=== PATIENT | female | born 1940 | race Caucasian/White ===

== ENCOUNTER → 2021-05-17 13:47 | Outpatient (CLI) | payer OTHER, SELFPAY ==
--- NOTE | 2021-05-17 13:54 | CT_ITS ---
STUDY: CT ABDOMEN WITH CONTRAST REASON FOR EXAM: Female, 81 years old. Upper abdominal mass RADIATION DOSAGE (If Supplied By Facility): CTDIvol = ( 13.87 ) mGy, DLP = ( 459.41 ) mGycm TECHNIQUE: Transaxial images were obtained post I.V. administration of IV 100mL Isovue-300, and oral contrast. Sagittal and coronal images were reconstructed. Individualized dose optimization techniques were used for this CT. COMPARISON: None. FINDINGS: Minimal right basilar atelectasis. Mild degree of pericardial thickening. Normal liver. Normal gallbladder and extrahepatic biliary system. Normal spleen. Normal pancreas. Normal bilateral adrenal glands. There is a 3.2 cm x 2.6 cm right parapelvic cyst. Scattered small cysts are seen in the right kidney as well the larger measuring 1.4 cm. Mild degree of the left hydronephrosis. There is a moderate-sized hiatal hernia. Normal small intestine. Normal colon. The appendix is visualized and appears normal. There is diffuse atherosclerotic calcification of the abdominal aorta, without a demonstrated aneurysm. Normal inferior vena cava. Normal retroperitoneum. There is a large anterior ventral hernia containing nondistended feces filled transverse colon. The neck of the hernia measures 4.1 cm. There are diffuse degenerative changes of the visualized lumbar spine. Exaggerated lordosis of the lumbar spine. Grade 1 anterior listhesis of L4 on L5 due to facet joint osteoarthritis. CT/Abdomen WITH IV Contrast IMPRESSION: The palpable mass corresponds to a large ventral hernia containing nondilated transverse colon. Bilateral renal cysts. Electronically Signed: Mike Daniels MD at 15:15 EDT , Service support ,
[2021-05-17 14:11] LABS: CREATININE FINGERSTICK 0.7 mg/dL (0.55-1.02); EGFR FINGERSTICK > 60.0000 mL/min (>60)
--- NOTE | 2021-05-31 11:40 | US_ITS ---
STUDY: ULTRASOUND TRANSVAGINAL CLINICAL: Female, 81 years old. Prolapse TECHNIQUE: Transvaginal COMPARISON: CT dated 05/17/2021. FINDINGS: Normal uterine size measuring 5.7 cm in maximal craniocaudal dimension. There are no myometrial masses. Normal endometrial thickness measuring 3.1 mm. There are no endometrial masses, and there is no fluid in the endometrial cavity. Normal uterine cervix. There is nonvisualization of the ovaries. There is no free fluid in the pelvis. US/Transvaginal Non- IMPRESSION: Nonvisualization of the ovaries secondary to overlying bowel gas. Within normal limits appearing uterus. Electronically Signed: Tracy Mark MD at 16:56 EDT Tel , Service support ,
--- NOTE | 2021-05-31 11:40 | US_ITS ---
STUDY: ULTRASOUND TRANSVAGINAL CLINICAL: Female, 81 years old. Prolapse TECHNIQUE: Transvaginal COMPARISON: CT dated 05/17/2021. FINDINGS: Normal uterine size measuring 5.7 cm in maximal craniocaudal dimension. There are no myometrial masses. Normal endometrial thickness measuring 3.1 mm. There are no endometrial masses, and there is no fluid in the endometrial cavity. Normal uterine cervix. There is nonvisualization of the ovaries. There is no free fluid in the pelvis. US/Pelvic (Non ) IMPRESSION: Nonvisualization of the ovaries secondary to overlying bowel gas. Within normal limits appearing uterus. Electronically Signed: Tracy Mark MD at 16:56 EDT Tel , Service support ,
== END ==
LOC: CT 13:48
PROVIDERS: PCP Internal Medicine; Referring Provider Obstetrics & Gynecology; Visit Provider Obstetrics & Gynecology
DX: R19.00 Intra-abdominal and pelvic swelling, mass and lump, unspecified site (principal)
CPT/HCPCS: 74160; Q9967

== ENCOUNTER → 2021-05-21 16:20 | Outpatient (CLI) | payer OTHER, SELFPAY ==
[2021-05-21 17:12] LABS: ALB/GLOB Ratio 0.9 RATIO (0.9-2.4); AST(SGOT) 29 U/L (15-37); Alanine Aminotransfer ALT/SGPT 34 U/L (13-56); Albumin, Serum 3.6 g/dL (3.2-5.0); Alkaline Phosphatase 59 U/L (45-117); Anion Gap 8 (5-15); BUN 18 mg/dL (7-18); BUN/Creat Ratio 27.8 RATIO (10-20); Calcium,Total 9.1 mg/dL (8.5-10.1); Chloride 107 mmol/L (98-107); Creatinine, Serum 0.65 mg/dL (0.55-1.02); EST Glomerular Filtration Rate 94 mL/min (>60); Est Glom Filt Rate - Afr Amer 113 mL/min (>60); Globulin 4.2 g/dL (2.2-4.2); Glucose 98 mg/dL (74-106); Potassium 3.6 mmol/L (3.5-5.1); Protein, Total 7.8 g/dL (6.4-8.2); Sodium Level 141 mmol/L (136-145)
[2021-05-23 09:52] LABS: Cancer Antigen 125 36.2 U/mL (0.0-38.1)
== END ==
PROVIDERS: PCP Internal Medicine; Referring Provider Obstetrics & Gynecology; Visit Provider Obstetrics & Gynecology
DX: R19.00 Intra-abdominal and pelvic swelling, mass and lump, unspecified site (principal); N81.2 Incomplete uterovaginal prolapse
CPT/HCPCS: 36415; 80053; 86304

== ENCOUNTER → 2021-05-31 11:18 | Outpatient (CLI) | payer OTHER, SELFPAY | PROVIDERS: PCP Internal Medicine; Visit Provider Obstetrics & Gynecology | DX: R19.00 Intra-abdominal and pelvic swelling, mass and lump, unspecified site (principal) | CPT/HCPCS: 76830; 76856 ==

== ENCOUNTER 2021-08-16 05:19 | Day surgery (SDC) | payer MEDICARE, SELFPAY ==
[2021-07-05 12:39] LABS: Absolute Lymphocyte Count 1.34 X10^3/uL (0.83-4.51); Absolute Neutrophil Count 3.7 X10^3/uL (2.0-7.7); Basophil# 0.09 X10^3/uL; Basophil% 1.5 % (0-1); Eosinophil# 0.27 X10^3/uL; Eosinophils% 4.4 % (0-5); Hematocrit 40.3 % (37-47); Hemoglobin 13.5 g/dL (12.0-15.0); Lymphocyte # 1.34 X10^3/ul (0.83-4.51); Lymphocyte % 22.1 % (19-41); Mean Corp Hgb Conc 33.5 g/dL (32-36); Mean Corpuscular Hgb 30.7 pg (27.0-32.0); Mean Corpuscular Volume 91.6 fL (81-99); Mean Platelet Vol. 10.2 fl (6.2-12.0); Monocyte# 0.65 X10^3/uL; Monocyte% 10.7 % (0-10); NRBC Flagged by Analyzer 0 % (0-5); Platelet Count 245 K/mm3 (150-450); RBC Distribution Width CV 12.4 % (11.6-14.6); RBC Distribution Width SD 41.3 fl (35.1-43.9); White Blood Count 6.1 K/mm3 (4.4-11.0)
[2021-07-05 12:48] LABS: Prothrombin Time (Protime)PT. 12.6 SECONDS (11.7-14.9)
[2021-07-05 12:49] LABS: Partial Thromboplast Time 29.5 Seconds (24.1-36.2)
[2021-07-05 13:10] LABS: ALB/GLOB Ratio 0.9 RATIO (0.9-2.4); AST(SGOT) 27 U/L (15-37); Alanine Aminotransfer ALT/SGPT 33 U/L (13-56); Albumin, Serum 3.5 g/dL (3.2-5.0); Alkaline Phosphatase 54 U/L (45-117); Anion Gap 5 (5-15); BUN 16 mg/dL (7-18); Chloride 108 mmol/L (98-107); Creatinine, Serum 0.62 mg/dL (0.55-1.02); EST Glomerular Filtration Rate 99 mL/min (>60); Est Glom Filt Rate - Afr Amer 120 mL/min (>60); Glucose 103 mg/dL (74-106); Potassium 3.8 mmol/L (3.5-5.1); Protein, Total 7.5 g/dL (6.4-8.2); Sodium Level 140 mmol/L (136-145)
[2021-07-05 13:21] LABS: AST(SGOT) 26 U/L (15-37); Alanine Aminotransfer ALT/SGPT 33 U/L (13-56); Albumin, Serum 3.4 g/dL (3.2-5.0); Alkaline Phosphatase 53 U/L (45-117); Bilirubin, Direct 0.11 mg/dL (0.00-0.30); Globulin 4.1 g/dL (2.2-4.2); Magnesium 2.3 mg/dL (1.6-2.6); Protein, Total 7.5 g/dL (6.4-8.2); Thyroid Stim Hormone (TSH) 0.68 uIU/mL (0.358-3.74)
--- NOTE | 2021-08-15 17:05 | PCM.HP.BLA ---
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 Driving Required: No Is patient in pain?: No Allergies No Known Allergies Allergy (Unverified 07/04/21 13:15) Medications aspirin 81 mg tablet,delayed release 81 mg PO DAILY 05/02/21 [History Confirmed 07/04/21] atorvastatin 10 mg tablet 10 mg PO DAILY 05/02/21 [History Confirmed 07/04/21] carvedilol 25 mg tablet 25 mg PO BID 05/02/21 [History Confirmed 07/04/21] cholecalciferol (vitamin D3) 50 mcg (2,000 unit) capsule 50 mcg PO DAILY 05/02/21 [History Confirmed 07/04/21] levothyroxine 125 mcg tablet 125 mcg PO DAILY 05/02/21 [History Confirmed 07/04/21] losartan 100 mg tablet 100 mg PO DAILY 05/02/21 [History Confirmed 07/04/21] multivitamin 1 tab PO DAILY 05/02/21 [History Confirmed 07/04/21] polyethylene glycol 3350 17 gram/dose oral powder 17 g PO DAILY 05/02/21 [History Confirmed 07/04/21] potassium chloride 10 mEq tablet,extended release 10 meq PO DAILY 05/02/21 [History Confirmed 07/04/21] psyllium husk 0.4 gram capsule 0.4 g PO DAILY 05/02/21 [History Confirmed 07/04/21] Saccharomyces boulardii 250 mg capsule 250 mg PO DAILY cap 06/11/21 [History Confirmed 07/04/21] alendronate 70 mg tablet 35 mg PO QWEEK tab 06/11/21 [History Confirmed 07/04/21] ascorbic acid (vitamin C) 500 mg capsule mg PO DAILY cap 06/11/21 [History Confirmed 07/04/21] calcium carbonate 500 mg calcium (1,250 mg) tablet 500 mg PO DAILY 06/11/21 [History Confirmed 07/04/21] cephalexin 250 mg capsule 250 mg PO DAILY cap 06/11/21 [History Confirmed 07/04/21] cranberry 500 mg capsule 600 mg PO DAILY cap 06/11/21 [History Confirmed 07/04/21] docusate sodium 50 mg capsule 50 mg PO BID cap 06/11/21 [History Confirmed 07/04/21] estradiol 1 g VAGINAL .3XW g 06/11/21 [History Confirmed 07/04/21] hydrochlorothiazide 25 mg tablet 12.5 mg PO DAILY tab 06/11/21 [History Confirmed 07/04/21] magnesium oxide 500 mg capsule 250 mg PO DAILY cap 06/11/21 [History Confirmed 07/04/21] Is last menstrual period known: No Post menopausal: Yes Patient : No : No PFSH Medical History Bladder incontinence Cellulitis History of breast cancer Hyperlipidemia Hypertension Hypothyroidism Neurogenic bladder Osteoporosis Spinal stenosis Urinary tract infection Surgical History H/O laparoscopy History of knee replacement History of left mastectomy Spinal stenosis Social History Smoking Status: Never smoker alcohol intake: never substance use type: does not use caffeine: Yes seatbelt use: always do you feel safe at home: Yes additional social history: Miguelangel- both are retired [employer] BSO Details: RONALD TAPIA is a 81 year old who presents for preop appointment planning hysterectomy for prolapse. Female Reproductive History Menopausal Symptoms: No night sweats Pregancy History 2 Elective abortions Hx Para 2 Spontaneous abortions Hx # Term Pregnancies Ectopic pregnancies Hx # Pregnancies Multiple births # of living children ROS Const Constitutional: Reports system reviewed and no additional complaints, except as documented; Denies fatigue, headache(s) or night sweats ENT ENT: Reports system reviewed and no additional complaints, except as documented Cardio Card: Denies chest pain Resp Resp: Denies cough or dyspnea GI GI: Reports fecal incontinence; Denies abdominal pain, bloating, change in stool character, constipation, nausea or vomiting : Reports prolapse symptoms and vaginal dryness; Denies nipple discharge, pelvic pain, sexual dysfunction, urinary frequency, urinary incontinence, urinary urgency, vaginal discharge, vaginal odor or vaginal pruritus Musc Musc: Reports arthralgias, back pain and muscle weakness Skin Skin/Breast: Denies alopecia, change in hair, dry skin, breast mass, breast pain, breast skin changes or nipple discharge Psych Psych: Denies anxiety or depression Endo Endo: Denies excessive sweating, heat intolerance or polydipsia John/Lymph Hematologic/Lymphatic: Denies easy bleeding, Denies easy bruising and Denies lymphadenopathy Exam Const General: cooperative, healthy appearing, comfortable, no acute distress and well developed Orientation: alert [facility] Head: normal to inspection, normocephalic and atraumatic Ears: hearing grossly normal bilaterally and external ears normal Nose: external nose normal and nares normal Face and sinus: normal facial exam Neck Neck: normal visual inspection, full ROM, no lymphadenopathy and trachea midline Thyroid: thyroid normal Resp Effort & Inspection: normal respiratory effort Auscultation: clear to auscultation bilaterally Cardio Rate: regular rate Rhythm: regular rhythm Heart Sounds: S1 normal and S2 normal GI Inspection: abnormal to inspection, non-distended and other (Supraumbilical 10 cm fluctuant mass abdominal wall unclear borders) Palpation: soft, no hepatosplenomegaly, no hepatomegaly, mass (Fluctuant cystic), not rigid and nontender General: bladder normal to palpation External Female Exam: abnormal external appearance (atrophic introitus), normal appearance of the urethra and no lesions Urethra: normal appearance of the urethra Speculum Exam - Vagina: abnormal appearance of the vagina, normal vaginal discharge, vagina atrophic and no lesions Speculum Exam - Cervix: normal appearance of the cervix Bimanual Exam- Vagina & Uterus: normal bimanual exam, uterine size normal, bladder normal to palpation, uterine shape normal, uterine mobility normal and non-tender Bimanual Exam- Adnexa, other: normal adnexae, no masses, rectocele, cystocele (3 grade) and vaginal apex descent Pelvic Support: cystocele (3 grade) severe, rectocele moderate and vaginal apex descent moderate Musc Other: gross motor intact no deficits, full bilateral strength Skin General: no rashes or lesions noted and atrophy Neuro General: patient alert, patient awake, moves all extremities and no focal motor deficits Motor: muscle tone normal throughout Extrem General: normal to inspection and no pedal edema Psych Appearance: grossly normal Mental Status: mental status grossly normal Affect: normal affect Speech and Movement: speech and movement normal Coding Level of Care Code No Charge Diagnoses Incomplete uterovaginal prolapse N81.2 Ventral hernia K43.9 Obstruction and gangrene presence: without obstruction or gangrene Assessment and Plan Assessment and Plan (1) Incomplete uterovaginal prolapse: Status: Acute Comment: urogyn combo surgery planned. TVHBSO. pessary replaced. (2) Ventral hernia: Status: Acute Qualifiers: Obstruction and gangrene presence: without obstruction or gangrene Qualified Code(s): K43.9 - Ventral hernia without obstruction or gangrene Comment: plan repair with AT Plan - Dr. Latesha Miranda MD: After discussing the patient's diagnosis and treatment plan options, patient wishes to proceed with surgical management. I have discussed with the patient the risks, benefits, and alternatives of the procedure which include but are not limited to risks of anesthesia, bleeding, infection, possible damage to bowel, bladder, or surrounding vasculature which could lead to additional surgery to evaluate any complications. Patient agrees to procedure and wishes to proceed. ACOG/uptodate references given for additional information regarding procedure. UPDATE- I have seen the patient and performed any clinically relevant updates to the history and physical exam. Latesha Miranda MD
[2021-08-16] VITALS (11 sets, daily range): BP systolic 95–137; BP diastolic 55–80; PULSE 52–73; RESP 16–18; TEMP 36.1–37.2; O2SAT 93–100; BMI 29.0
[2021-08-16] MEDS: Lactated Ringers 1,000 ML 40 ML IV (06:34)
[2021-08-16 06:35] LABS: Bedside Glucose 105 mg/dL (70-110)
[2021-08-16] MEDS: Acetaminophen 500 MG Tablet 1000 MG PO ×4 (06:37→23:45)
[2021-08-16] MEDS: Celecoxib 200 MG Capsule 400 MG PO (06:38)
[2021-08-16] MEDS: Enoxaparin 40 MG/0.4 ML Syringe SC (06:40)
[2021-08-16] MEDS: Scopolamine 1mg/72hr Patch 1 PATCH TD (06:41)
[2021-08-16] MEDS: dexAMETHasone 10 MG/ML Vial 8 MG IV (06:43)
[2021-08-16] MEDS: Gabapentin 600 MG Tablet PO (06:49)
[2021-08-16] MEDS: Cefazolin 2 GM in 0.9% Normal Saline 100 ML IV (07:26)
--- NOTE | 2021-08-16 07:30 | HYST_PTH ---
PATIENT: RONALD TAPIA LOC: [facility] [place] U#:[id number] AGE/SX: 81/F ROOM: RE08/16/[address]: Dr. Latesha Miranda MD : [id number] BED: DIS: 08/17/2021 SPEC #: [id number] RECD: 08/16/21 13:08 STATUS: GIOVANNA KRISHNA #: [id number] MATT: 08/16/21 07:[address]: Latesha Miranda DEPT: SURGICAL PATHOLOGY RECD BY: Anna Marie Love ENTERED: 08/19/21 09:37 SP TYPE: HYSTERECT OTHR DR: MD Dr. Jenny Wilson DO Tissues: Uterus, NOS Procedures: Surgery Specimen Level V HEADER OPERATION: Vaginal hysterectomy, bilateral salpingo-oophorectomy PRE-OP DIAGNOSIS: Incomplete uterovaginal prolapse TISSUE SUBMITTED: Uterus, cervix, bilateral fallopian tubes, bilateral ovaries MICROSCOPIC DIAGNOSIS Uterus, hysterectomy: Cervix ? acute and chronic inflammation, hyperkeratosis and squamous metaplasia. Endometrium ? focal simple cystic hyperplasia without atypia. Mild chronic endometritis. Myometrium ? vessel wall microcalcifications. Right and left fallopian tubes - no pathologic change. Right and left ovaries ? corpora albicantia. AM:hawa 08/20/2021 MICROSCOPIC DESCRIPTION Slides are reviewed. GROSS DESCRIPTION Received in fixative is one container labeled with the patient's name and designated uterus, cervix, bilateral fallopian tubes and bilateral ovaries. The specimen consists of a hysterectomy specimen consisting of uterus with cervix and detached bilateral fallopian tubes and ovaries. The uterus with cervix weighs 50 gm and measures 7 x 5 x 3.5 cm. The serosal surface is smooth. The ectocervical mucosa is unremarkable. The external os is slit-like in contour. The endocervical canal measures 2 cm in length and the endocervical mucosa is salas, glistening and unremarkable. The triangular endometrial cavity measures 2.5 cm in length and 1 cm in width. The endometrium is salas, glistening without any mass lesion and measures <0.1 cm in thickness. Sections of the uterine wall do not reveal any mass lesion and measures up to 1.5 cm in thickness. The fallopian tubes are not identified as right or left. One of the fallopian tube measures 4.5 cm in length and up to 0.5 cm in diameter. No tubo-ovarian adhesions are identified. The fimbrial end is identified. Sections reveal unremarkable cut surfaces. The adjacent ovary measures 2.5 x 1 x 0.5 cm. Sections reveal unremarkable cut surfaces. The second fallopian tube measures 4 cm in length and 0.4 cm in diameter. It has similar appearance to first one. The second fallopian tube and ovary are detached from one another and the fallopian tube measures 2 x 0.5 x 0.6 cm. Sections reveal unremarkable cut surfaces. Branch Service Leader sections are submitted in eight cassettes as follows: 1??anterior cervix, 2 - posterior cervix, 3 & 4 - anterior uterine wall, 5 & 6 - posterior uterine wall, 7 - one fallopian tube and adjacent ovary, 8 - second fallopian tube and ovary. / TANESHA:hawa 08/19/2021 TC:5 CPT: 25521
[2021-08-16] MEDS: Vasopressin 20 UNITS/ML Vial (07:50)
[2021-08-16] MEDS: Lactated Ringers @ 70 MLS/HR 70 ML IV (08:30)
--- NOTE | 2021-08-16 10:23 | DCINST_ITS ---
Discharge Instructions Diet Discharge Diet: No restrictions Activity Discharge Activity: Return to Normal Activity, May Not Drive (while taking narcotic pain medications.) and May Shower May resume sexual activity in: 6-8 weeks Dressing / Incision Call your doctor if your incision/area has: Continuous Slow Oozing, Sudden Increased Bleeding, Increased Pain/ Swelling, Increased Redness and Foul Smelling Discharge Call your doctor if you observe: Fever of 101 or Higher, Inability to urinate, Inability to have a bowel movement and Using more than 1 pad per hour Follow Up Care Please Follow Up With: Latesha Miranda MD Test Results: Test results from this visit will be discussed in further detail at your follow-up appointment, if applicable. Discharge Plan Admission Attending Provider: Latesha Miranda Primary Care Provider: Jenny Lezama Consulting Providers: Luci Deluca Discharge Orders/Prescriptions Prescriptions: New naproxen 250 MG tablet 250 - 500 mg PO Q8H PRN PRN (Reason: MILD PAIN) Qty: 30 RF: 1 oxycodone-acetaminophen [Percocet] 5-325 mg tablet 1 tab PO Q6H PRN (Reason: pain) 7 Days Qty: 20 RF: 0 Continued losartan 100 mg tablet 100 mg PO DAILY RF: 0 carvedilol 25 mg tablet 25 mg PO BID RF: 0 levothyroxine 125 mcg tablet 125 mcg PO MOTUWETHFR RF: 0 potassium chloride [Klor-Con 10] 10 mEq tablet extended release 10 meq PO DAILY RF: 0 atorvastatin [Lipitor] 10 mg tablet 10 mg PO DAILY RF: 0 polyethylene glycol 3350 [Miralax] 17 gram/dose powder 17 g PO QHS RF: 0 multivitamin Tablet 1 tab PO DAILY RF: 0 cholecalciferol (vitamin D3) 50 mcg (2,000 unit) capsule 50 mcg PO DAILY RF: 0 aspirin 81 mg tablet,delayed release (DR/EC) 81 mg PO DAILY RF: 0 psyllium husk [Daily Fiber] 0.4 gram capsule 0.4 g PO DAILY RF: 0 alendronate [Fosamax] 70 mg tablet 35 mg PO NUNEZ RF: 0 ascorbic acid (vitamin C) 500 mg capsule 500 mg PO BID RF: 0 cephalexin 250 mg capsule 250 mg PO DAILY RF: 0 cranberry 500 mg capsule 600 mg PO DAILY RF: 0 Stool Softener 50 mg capsule 50 mg PO BID RF: 0 estradiol [Estrace] 0.01 % (0.1 mg/gram) cream 1 g vaginal .3XW RF: 0 hydrochlorothiazide 25 mg tablet 25 mg PO DAILY RF: 0 magnesium oxide 500 mg capsule 250 mg PO QHS RF: 0 Saccharomyces boulardii [Daily Probiotic (S. boulardii)] 250 mg capsule 250 mg PO DAILY RF: 0 calcium carbonate [Calcium 500] 500 mg calcium (1,250 mg) tablet 500 mg PO DAILY RF: 0 zinc 50 mg Tablet 50 mg PO DAILY RF: 0 Other Ambulatory Orders: Type & Screen - PAT ONLY (Routine) Timeframe: [id number] Facility: [facility] - Location: Laboratory Ordered By: Dr. Latesha Miranda Referrals / Follow Up: Jenny Lezama DO [Primary Care Provider] - Disposition Disposition (needs filled in before D/C Order can be placed): Home, Self Care
--- NOTE | 2021-08-16 10:23 | PCM.OPRPT ---
Problems Associated Problem List Diagnoses (1) Incomplete uterovaginal prolapse: Report of Operation Pre-Operative Diagnosis: see PL Post-Operative Diagnosis: same Surgery/Procedure Performed:: TVH BSO Description of Surgical Findings:: nl uterus tubes ovaries Type of Anesthesia: General Specimen's removed: uterus, tubes, ovaries Drains: waggoner Fluids Replaced: crystalloid Description of Procedure: Patient was taken to the operating room and was placed under general anesthesia was prepped and draped in normal sterile fashion in the dorsal lithotomy position. Preoperative antibiotics and SCDs and Waggoner catheter was placed inside the bladder. Weighted speculum was placed in the vagina and the anterior and posterior lip of the cervix was grasped with 2 Patricia clamps and circumferentially injected with dilute vasopressin. A circumferential incision was made with a scalpel and the posterior cul-de-sac was entered into sharply and a longneck speculum was placed. The anterior cul-de-sac was also dissected down and entered into sharply and the uterosacral ligaments were clamped cut and suture ligated bilaterally followed by the cardinal ligaments which were Clamped cut and suture ligated bilaterally with 0 Monocryl. The uterus serially descended and progressive bites were taken bilaterally up to the level of the utero-ovarian ligament bilaterally which was clamped transected and double ligated with 0 Monocryl suture and 0 Vicryl free tie. Bilateral fallopian tubes and ovaries were well visualized and noted be within normal limits and the IP ligament was transected across the base with a ema clamp, then ovaries and tubes removed and the pedicle double ligated with O monocryl. Excellent hemostasis was noted. The vagina was closed with [id number] 0 Vicryl pop offs including the posterior and anterior peritoneum in the reapproximation. Excellent hemostasis was noted. Then Dr. Deluca began her portion of the procedure. Grafts/Implants Used: none Complications none Admit VTE Documentation VTE Present on Admission: No VTE Mechan Device Prophylaxis: SCD's VTE Pharm Prophylaxis ordered?: Yes Multi Select Codes Urinary/Genital Urinary/Genital CPT Codes: 57694 TVH+BS/O <250gr uterus
[2021-08-16] MEDS: Estrogens,Conj. 1 Tube 1 DOSE (10:45)
--- NOTE | 2021-08-16 11:02 | PCM.OPRPT ---
Problems Associated Problem List Diagnoses (1) Incomplete uterovaginal prolapse: Report of Operation Date of Procedure: 08/16/21 Pre-Operative Diagnosis: Incomplete uterovaginal prolapse Post-Operative Diagnosis: Same Surgery/Procedure Performed:: Anterior repair with dermis, posterior repair with dermis, bilateral sacrospinous ligament fixation, cystourethroscopy with bilateral ureteral catheterization Description of Surgical Findings:: The patient is a 81-year-old female who presents for definitive surgical intervention for her longstanding prolapse. Informed consent was obtained and preoperative testing was completed. The patient was taken to the operating room and placed on the operating room table. Anesthesia monitored the head, neck, airway, IV access and vital signs throughout the case. Once anesthesia was appropriate ministered the patient was placed into dorsal lithotomy in Trendelenburg position and was prepped and draped in usual sterile fashion. A 16 Jamaican Sullivan catheter was inserted to straight drain and the bladder was emptied. Dr. Miranda proceeded with her portion of the procedure and once the cuff line was closed, the case was turned over to fl. The anterior vaginal wall was isolated and injected submucosally with vasopressin for hemostatic control and diet hydrostatic dissection. At this time a midline vertical incision approximately 2 cm in length was made and dissection was performed and blunt and sharp fashion on both sides into the sacrospinous ligaments were identified and freed from surrounding tissues. Due to the level of prolapse, there is significant amount of redundant anterior vaginal wall. Once the sacrospinous ligaments were isolated, the Capio device was used to pass an Ethibond suture through each side. The suture was brought out through a trimmed piece of dermis and then through the vaginal mucosa in full-thickness fashion at the apex bilaterally. A midline Vicryl suture was used to secure the dermis at the apex as well. It was secured with Vicryl interrupted sutures all the way around. Once it was securely in position, the vaginal mucosa was closed in running interlocking fashion with with 2-0 Vicryl. The Ethibond sutures were then tied into position and the prolapse was reduced. The Sullivan catheter was removed and a cystourethroscopy was performed revealing no evidence of injury to any of the bladder mucosa or the urethra. Bilateral ureteral orifices were located in the correct anatomic position and were each intubated with a 5 Jamaican whistle-tip catheter without evidence of obstruction or injury. Attention was then turned toward the posterior defect. The posterior wall was isolated with Allis clamps and injected submucosally with vasopressin. A midline incision was made and sharp and blunt dissection was performed bilaterally to the sidewall. Towards the apex, the vaginal mucosa became very very thin and I had difficulty it from the bowel. At this time I used a piece of dermis and sewed the rectovaginal fascia from each sidewall to the dermis in the midline. The area of the perineal body was brought together in the midline for increased support. The vaginal mucosa was then closed in full-thickness fashion over the repair. A cystourethroscopy once again confirmed no evidence of injury. The Sullivan catheter was replaced and the balloon inflated with 10 cc of sterile water. The vagina was packed with vaginal packing and estrogen cream. The patient was then awakened and taken to the recovery room in good condition. There were no complications during this procedure. Surgeon: Luci Deluca Type of Anesthesia: General Estimated Blood Loss (mL): 100 total Grafts/Implants Used: Dermis Complications None Admit VTE Documentation VTE Present on Admission: No VTE Pharm Prophylaxis ordered?: Yes
--- NOTE | 2021-08-16 11:10 | DCINST_ITS ---
Discharge Instructions Diet Discharge Diet: No restrictions Activity Discharge Activity: May Shower and Use Walker May resume sexual activity in: 8 weeks Lifting Restrictions: No lifting over 5 pounds, no exercise, no strenuous a ctivity Additional Activity Instructions:: No swimming, tub bathing or hot tubs, no sexual activity Dressing / Incision Call your doctor if your incision/area has: Continuous Slow Oozing, Sudden Increased Bleeding, Increased Pain/ Swelling, Increased Redness and Foul Smelling Discharge Call your doctor if you observe: Fever of 101 or Higher, Inability to urinate, Inability to have a bowel movement and Using more than 1 pad per hour Additional Dressing/Incision Instructions:: resume normal cathing schedule and estrogen cream intravaginally regular schedule Follow Up Care Please Follow Up With: Latesha Miranda MD When: Dr. Deluca in 2 weeks Test Results: Test results from this visit will be discussed in further detail at your follow-up appointment, if applicable. Discharge Plan Admission Attending Provider: Latesha Miranda Primary Care Provider: Jenny Lezama Consulting Providers: Luci Deluca Discharge Orders/Prescriptions Prescriptions: New naproxen 250 MG tablet 250 - 500 mg PO Q8H PRN PRN (Reason: MILD PAIN) Qty: 30 RF: 1 oxycodone-acetaminophen [Percocet] 5-325 mg tablet 1 tab PO Q6H PRN (Reason: pain) 7 Days Qty: 20 RF: 0 Continued losartan 100 mg tablet 100 mg PO DAILY RF: 0 carvedilol 25 mg tablet 25 mg PO BID RF: 0 levothyroxine 125 mcg tablet 125 mcg PO MOTUWETH RF: 0 potassium chloride [Klor-Con 10] 10 mEq tablet extended release 10 meq PO DAILY RF: 0 atorvastatin [Lipitor] 10 mg tablet 10 mg PO DAILY RF: 0 polyethylene glycol 3350 [Miralax] 17 gram/dose powder 17 g PO QHS RF: 0 multivitamin Tablet 1 tab PO DAILY RF: 0 cholecalciferol (vitamin D3) 50 mcg (2,000 unit) capsule 50 mcg PO DAILY RF: 0 aspirin 81 mg tablet,delayed release (DR/EC) 81 mg PO DAILY RF: 0 psyllium husk [Daily Fiber] 0.4 gram capsule 0.4 g PO DAILY RF: 0 alendronate [Fosamax] 70 mg tablet 35 mg PO NUNEZ RF: 0 ascorbic acid (vitamin C) 500 mg capsule 500 mg PO BID RF: 0 cephalexin 250 mg capsule 250 mg PO DAILY RF: 0 cranberry 500 mg capsule 600 mg PO DAILY RF: 0 Stool Softener 50 mg capsule 50 mg PO BID RF: 0 estradiol [Estrace] 0.01 % (0.1 mg/gram) cream 1 g vaginal .3XW RF: 0 hydrochlorothiazide 25 mg tablet 25 mg PO DAILY RF: 0 magnesium oxide 500 mg capsule 250 mg PO QHS RF: 0 Saccharomyces boulardii [Daily Probiotic (S. boulardii)] 250 mg capsule 250 mg PO DAILY RF: 0 calcium carbonate [Calcium 500] 500 mg calcium (1,250 mg) tablet 500 mg PO DAILY RF: 0 zinc 50 mg Tablet 50 mg PO DAILY RF: 0 Other Ambulatory Orders: Type & Screen - PAT ONLY (Routine) Timeframe: [id number] Facility: [facility] - Location: Laboratory Ordered By: Dr. Latesha Miranda Referrals / Follow Up: Jenny Lezama DO [Primary Care Provider] - Disposition Disposition (needs filled in before D/C Order can be placed): Home, Self Care
[2021-08-16] MEDS: Ketorolac 15 MG/ML Vial IV ×3 (12:45→23:44)
[2021-08-16] MEDS: oxyCODONE 5 MG Tablet PO (13:37)
[2021-08-16] MEDS: Potassium Chloride Oral Tablet 10 MEQ PO (17:25)
[2021-08-16] MEDS: Docusate Sodium 100 MG Capsule PO ×2 (17:26→21:48)
[2021-08-16] MEDS: Cephalexin 250 MG Capsule PO (17:27)
[2021-08-16] MEDS: 0.9% Saline Lock 10 ML Syringe IV (17:34)
[2021-08-16] MEDS: Lactated Ringers 1,000 ML 75 ML IV (19:54)
--- NOTE | 2021-08-16 21:20 | PCS.PANDOC ---
PANDEMIC DOCUMENTATION INITIATED: Date: 08/16/2021 Time: 1900
[2021-08-16] MEDS: Polyethylene Glycol 3350 17 GM PACKET PO (21:48)
[2021-08-17] VITALS: BP 102/65; PULSE 68; RESP 16; TEMP 36.5; O2SAT 94
[2021-08-17 04:00] VITALS: BP 111/58; PULSE 65; RESP 16; TEMP 36.6; O2SAT 96
[2021-08-17] MEDS: Acetaminophen 500 MG Tablet 1000 MG PO (05:49)
[2021-08-17] MEDS: 0.9% Saline Lock 10 ML Syringe IV (05:49)
[2021-08-17] MEDS: Ketorolac 15 MG/ML Vial IV (05:49)
[2021-08-17 05:58] LABS: Hematocrit 29.5 % (37-47); Hemoglobin 9.6 g/dL (12.0-15.0); Mean Corp Hgb Conc 32.5 g/dL (32-36); Mean Corpuscular Hgb 30.6 pg (27.0-32.0); Mean Corpuscular Volume 93.9 fL (81-99); Mean Platelet Vol. 10.7 fl (6.2-12.0); Platelet Count 218 K/mm3 (150-450); RBC Distribution Width CV 12.6 % (11.6-14.6); Red Blood Count 3.14 M/mm3 (4.2-5.4); White Blood Count 15.6 K/mm3 (4.4-11.0)
[2021-08-17 08:11] VITALS: BP 109/66; PULSE 69; RESP 18; TEMP 36.8; O2SAT 98
[2021-08-17] MEDS: Enoxaparin 40 MG/0.4 ML Syringe SC (08:16)
[2021-08-17] MEDS: Cephalexin 250 MG Capsule PO (08:16)
[2021-08-17] MEDS: Carvedilol 25 MG Tablet PO (08:16)
[2021-08-17] MEDS: Losartan Potassium 100 MG Tablet PO (08:16)
[2021-08-17] MEDS: hydroCHLOROthiazide 25 MG Tablet PO (08:17)
[2021-08-17] MEDS: Docusate Sodium 100 MG Capsule PO (08:17)
[2021-08-17] MEDS: Cholecalciferol (VIT D3) 25 MCG TABLET (1,000 UNITS) 50 MCG PO (08:17)
[2021-08-17] MEDS: Potassium Chloride Oral Tablet 10 MEQ PO (08:17)
[2021-08-17] MEDS: Lactated Ringers 1,000 ML 75 ML IV (08:18)
[2021-08-17 11:25] VITALS: BP 107/50; PULSE 70; RESP 18; TEMP 37.2; O2SAT 95
== END 2021-08-17 12:21 | disposition home or self-care (01) ==
LOC: SDC 05:24 → AC 05:24 → MS3 14:39
PROVIDERS: Anesthesiology; Urology; PCP Internal Medicine; Referring Provider Obstetrics & Gynecology; Visit Provider Obstetrics & Gynecology
PROC: (CPT 58260; principal; 2021-08-16 07:10)
PROC: (CPT 57260; 2021-08-16 07:10)
DX: N81.2 Incomplete uterovaginal prolapse (principal); N31.9 Neuromuscular dysfunction of bladder, unspecified; N95.2 Postmenopausal atrophic vaginitis; N39.41 Urge incontinence; N88.0 Leukoplakia of cervix uteri; N87.9 Dysplasia of cervix uteri, unspecified; N85.01 Benign endometrial hyperplasia; N71.1 Chronic inflammatory disease of uterus; N83.291 Other ovarian cyst, right side; N83.292 Other ovarian cyst, left side; I10 Essential (primary) hypertension; E78.5 Hyperlipidemia, unspecified; E03.9 Hypothyroidism, unspecified; K59.2 Neurogenic bowel, not elsewhere classified; K43.9 Ventral hernia without obstruction or gangrene; M19.90 Unspecified osteoarthritis, unspecified site; M81.0 Age-related osteoporosis without current pathological fracture; Z79.82 Long term (current) use of aspirin; Z79.899 Other long term (current) drug therapy
CPT/HCPCS: 58262; 57260; 36415; 80053; 80076; 82962; 83735; 84443; 85025; 85027; 85610; 85730; 86850; 86900; 86901; 88307; 93005; 99251; J7120; A4216; C1758; G0463; J2405

== ENCOUNTER 2021-11-12 13:10 | Observation (INO) | payer MEDICARE, SELFPAY ==
[2021-11-05 16:22] LABS: Hematocrit 39.1 % (37-47); Hemoglobin 12.6 g/dL (12.0-15.0); Mean Corp Hgb Conc 32.2 g/dL (32-36); Mean Corpuscular Hgb 29.3 pg (27.0-32.0); Mean Corpuscular Volume 90.9 fL (81-99); Mean Platelet Vol. 10.4 fl (6.2-12.0); Platelet Count 238 K/mm3 (150-450); RBC Distribution Width CV 12.9 % (11.6-14.6); RBC Distribution Width SD 42.5 fl (35.1-43.9); White Blood Count 6.4 K/mm3 (4.4-11.0)
[2021-11-05 16:47] LABS: Anion Gap 4 (5-15); BUN 23 mg/dL (7-18); BUN/Creat Ratio 36.2 RATIO (10-20); Calcium,Total 9.2 mg/dL (8.5-10.1); Chloride 106 mmol/L (98-107); Creatinine, Serum 0.64 mg/dL (0.55-1.02); EST Glomerular Filtration Rate 96 mL/min (>60); Est Glom Filt Rate - Afr Amer 116 mL/min (>60); Glucose 100 mg/dL (74-106); Potassium 3.8 mmol/L (3.5-5.1); Sodium Level 138 mmol/L (136-145); Thyroid Stim Hormone (TSH) 1.25 uIU/mL (0.358-3.74)
[2021-11-12] VITALS (11 sets, daily range): BP systolic 96–149; BP diastolic 66–86; PULSE 55–75; RESP 14–18; TEMP 35.7–36.9; O2SAT 95–99; BMI 28.5
[2021-11-12] MEDS: Lactated Ringers 1,000 ML 15 ML IV ×2 (11:10→13:15)
--- NOTE | 2021-11-12 11:30 | PCM.HP.BLA ---
History and Physical Date of Admission: 11/12/21 Intake Vital Signs 10/08/21 13:38 Height 5 ft 1 in Weight: 149 lb BMI 28.1 BP 163/55 H Blood Pressure Location Rt brachial Position Sitting Respiration 17 Pulse 75 Pulse Source Monitor Temp 97.4 F L Temp Source Temporal Pulse Oximetry (%) 97 Oxygen Delivery Method room air Intake Visit Reasons: DISCUSS HERNIA SURGERY Chief Complaint: Discuss Hernia Surgery Project Management It Specialist Required: No Is patient in pain?: No Allergies No Known Allergies Allergy (Verified 10/08/21 13:39) Medications aspirin 81 mg tablet,delayed release 81 mg PO DAILY 05/02/21 [History Confirmed 10/08/21] atorvastatin 10 mg tablet 10 mg PO DAILY 05/02/21 [History Confirmed 10/08/21] carvedilol 25 mg tablet 25 mg PO BID 05/02/21 [History Confirmed 10/08/21] cholecalciferol (vitamin D3) 50 mcg (2,000 unit) capsule 50 mcg PO DAILY 05/02/21 [History Confirmed 10/08/21] levothyroxine 125 mcg tablet 125 mcg PO MOTUWETHFR 05/02/21 [History Confirmed 10/08/21] losartan 100 mg tablet 100 mg PO DAILY 05/02/21 [History Confirmed 10/08/21] multivitamin 1 tab PO DAILY 05/02/21 [History Confirmed 10/08/21] polyethylene glycol 3350 17 gram/dose oral powder 17 g PO QHS 05/02/21 [History Confirmed 10/08/21] potassium chloride 10 mEq tablet,extended release 10 meq PO DAILY 05/02/21 [History Confirmed 10/08/21] psyllium husk 0.4 gram capsule 0.4 g PO DAILY 05/02/21 [History Confirmed 10/08/21] Saccharomyces boulardii 250 mg capsule 250 mg PO DAILY cap 06/11/21 [History Confirmed 10/08/21] alendronate 70 mg tablet 35 mg PO NUNEZ tab 06/11/21 [History Confirmed 10/08/21] ascorbic acid (vitamin C) 500 mg capsule 500 mg PO BID cap 06/11/21 [History Confirmed 10/08/21] calcium carbonate 500 mg calcium (1,250 mg) tablet 500 mg PO DAILY 06/11/21 [History Confirmed 10/08/21] cephalexin 250 mg capsule 250 mg PO DAILY cap 06/11/21 [History Confirmed 10/08/21] cranberry 500 mg capsule 600 mg PO DAILY cap 06/11/21 [History Confirmed 10/08/21] docusate sodium 50 mg capsule 50 mg PO BID cap 06/11/21 [History Confirmed 10/08/21] estradiol 1 g VAGINAL .3XW g 06/11/21 [History Confirmed 10/08/21] magnesium oxide 500 mg capsule 250 mg PO QHS cap 06/11/21 [History Confirmed 10/08/21] zinc 50 mg PO DAILY 08/09/21 [History Confirmed 10/08/21] hydrochlorothiazide 25 mg tablet 12.5 mg PO DAILY tab 10/08/21 [History Confirmed 10/08/21] PFSH Medical History Ambulates with cane Arthritis Bladder incontinence Cellulitis Easy bruising Heartburn History of breast cancer History of hiatal hernia History of stress test Hyperlipidemia Hypertension Hypothyroidism Incomplete uterovaginal prolapse Leg cramps Neurogenic bladder Neurogenic bowel Osteoporosis Self-catheterizes urinary bladder Urinary tract infection Wears contact lenses Wears dentures Surgical History H/O laparoscopy History of knee replacement History of left mastectomy History of tonsillectomy History of total vaginal hysterectomy (TVH) Spinal stenosis Social History Smoking Status: Never smoker alcohol intake: never substance use type: does not use caffeine: Yes seatbelt use: always do you feel safe at home: Yes additional social history: Miguelangel- both are retired HPI HPI HPI: RONALD TAPIA, is a 81 F who presents to the office today for follow-up for ventral hernia. Patient had her vaginal hysterectomy and has recovered from this and now she would like her ventral hernia repaired. There have been no changes since last time I saw her. ROS General General: Yes breast cancer; No weight change, appetite, fatigue, colon cancer or weakness HEENT HEENT: No difficulty swallowing, eye injury, eye surgery, swollen glands or hoarseness Endo Endocrine: Yes thyroid disease; No diabetes mellitus, thyroid cancer, Hair loss, heat intolerance or cold intolerance Skin Skin: No rash or changing moles Breast Additional Details: Prior L mastectomy Musc Musculoskeletal: Yes back problems and arthritis; No rheumatoid arthritis, gout or joint pain Cardio Cardiovascular: No murmur, pacemaker, heart disease, atrial fibrillation, high blood pressure, heart attack, heart stent, palpitations, shortness of breat with exertion or chest pain Psych Psychiatric: No depression, anxiety or hearing voices Resp Respiratory: No shortness of breath, No sleep apnea, No cough, No COPD, No asthma, No emphysema and No wheezing Gastro Gastrointestinal: No abdominal pain, No nausea or vomiting, Yes diarrhea, Yes constipation, No blood in stool, No acid reflux, No hemorrhoids, No ulcers, No gallbladder problem and No black,tarry stools Additional Details: neurogenic bowel/bladder John Hematologic: No blood thinners, No blood disorders, No bleeding, No anemia and No blood clots Neuro Neurologic: No system reviewed and no additional complaints, except as documented, No as per HPI, No abnormal gait, No abnormal hearing, No abnormal movements, No abnormal speech, No behavioral changes, No burning sensations, No confusion, No convulsions, No disequilibrium, No dizziness, No localized weakness, No frequent falls, No headache(s), No lack of coordination, No loss of vision, No memory loss, Yes numbness, No other visual disturbances, No radicular pain, No restless legs, No sensory deficit, No syncope, Yes tingling, No tremor(s), No weakness and No other Exam Const General: cooperative Orientation: alert and oriented x3 HENMT Head: normal to inspection Neck Neck: normal visual inspection and full ROM Chest Chest palpation & inspection: normal inspection of the chest Resp Effort & Inspection: normal respiratory effort Auscultation: clear to auscultation bilaterally Cardio Rate: regular rate Rhythm: regular rhythm GI Inspection: non-distended Palpation: soft, hernia ventral and nontender Skin General: no rashes or lesions noted Neuro General: patient alert and patient oriented x3 Extrem General: full ROM Psych Appearance: grossly normal Mental Status: mental status grossly normal Assessment and Plan Assessment and Plan (1) Ventral hernia: Status: Acute Qualifiers: Obstruction and gangrene presence: without obstruction or gangrene Qualified Code(s): K43.9 - Ventral hernia without obstruction or gangrene Plan - Dr. Kyree Leggett MD: The patient has a large ventral hernia which is incarcerated containing colon. The patient had a vaginal hysterectomy and now is ready for ventral hernia repair with mesh. I discussed the procedure once more with her and I discussed a hybrid laparoscopic/open approach. I discussed mesh placement intra-abdominal. I did discuss drain placement as well as risks of the procedure including wound to bleeding, infection, recurrence of hernia, seroma formation, injury to underlying bowel. Patient understands the risks and is willing to proceed. Kyree Leggett MD Pager: [facility] [address] [place] [address], [address] [place] [address] Office: I have re-examined the patient. There are no clinical changes since date of exam.
[2021-11-12] MEDS: Cefazolin 2 GM in 0.9% Normal Saline 100 ML IV (11:52)
--- NOTE | 2021-11-12 12:05 | HERN_PTH ---
PATIENT: RONALD TAPIA LOC: [facility] U#:[id number] AGE/SX: 81/F ROOM: LA321 RE11/12/[address]: Dr. Kyree Leggett MD : 1940 BED: 1 DIS: 11/13/2021 SPEC #: [id number] RECD: 11/12/21 14:16 STATUS: GIOVANNA KRISHNA #: [id number] MATT: 11/12/21 12:[address]: Kyree Leggett DEPT: SURGICAL PATHOLOGY RECD BY: Fermin Salamanca ENTERED: 11/13/21 09:53 SP TYPE: Hernia OTHR DR: Dr. Jenny Lezama, DO Tissues: HERNIA Procedures: Surgery Specimen Level II HEADER OPERATION: Hybrid, hernia, ventral repair with mesh PRE-OP DIAGNOSIS: Ventral hernia TISSUE SUBMITTED: Hernia sac MICROSCOPIC DIAGNOSIS Ventral hernia sac, herniorrhaphy: Hernia sac with fibrosis, mild chronic inflammation and recent hemorrhage. AM:hawa 11/14/2021 MICROSCOPIC DESCRIPTION Slides are reviewed. GROSS DESCRIPTION Received in fixative is one container labeled with the patient's name and designated hernia sac. The specimen consists of multiple pieces of congested soft tissue that in aggregate measure 10 x 9 x 3 cm. No mass lesion is identified. ? A possible lymph node is noted measuring 2 x 1 x 0.5 cm. Retail Stock Clerk sections are submitted in two cassettes as follows: 1 ? soft tissue, 2 ? nodule, a possible lymph node, entirely submitted. / TANESHA:hawa 11/13/2021 TC:3 CPT: 09505
[2021-11-12] MEDS: BUPIVACAINE LIPOSOME/PF 20 ML VIAL OPERA.SITE (12:35)
[2021-11-12] MEDS: 0.9% Normal Saline (Pres. free 10 ML Vial (12:37)
--- NOTE | 2021-11-12 13:06 | PCM.OPRPT ---
Problems Associated Problem List Diagnoses (1) Ventral hernia: Report of Operation Date of Procedure: 11/12/21 Pre-Operative Diagnosis: Incarcerated ventral hernia Post-Operative Diagnosis: Incarcerated ventral hernia Surgery/Procedure Performed:: Open converted to laparoscopic incarcerated ventral hernia repair with mesh Specimen's removed: Hernia sac Drains: NINA to bulb suction Estimated Blood Loss (mL): 20 Description of Procedure: Patient was brought back to the operating room and general anesthesia was induced. The abdomen was prepped and draped in usual sterile fashion. A vertical incision was made over the hernia and deep into the hernia sac. Hernia sac was divided from its contents circumferentially. The hernia sac was then elevated and sharply incised. The hernia sac was resected. The attachments to the incarcerated colon were lysed using electrocautery and scissors. The fascia was opened an additional centimeter to allow for reduction of the contents. After the contents were reduced and the hernia sac was removed the fascia was closed with interrupted 0 PDS sutures in a [id number] fashion. The middle suture was knot tied tightly and then the 12 mm port was placed through this. The abdomen was insufflated to 15 mmHg. The camera is placed in the abdomen. Under direct vision a tap block was performed bilaterally. Next under direct visualization a 5 mm port was placed in the right lower quadrant and right upper quadrant. Next 11 cm round ventral light ST mesh with echo positioning device was placed through the 12 mm port and then 12 Mediport was removed and the fascial suture was tied tightly. The balloon was inflated and the mesh was tacked to the anterior abdominal wall using secure strap tacks. The balloon was removed and the mesh was tacked circumferentially. There was good coverage of the hernia. Next the abdomen was allowed to desufflate and the ports were removed. A 15 Latvian round drain was placed through the right upper quadrant skin incision and into the subcutaneous midline incision. The drain was placed into the subcutaneous tissue and the incisions were injected with local anesthetic. Next the subcutaneous tissue was reapproximated using interrupted 3-0 Vicryl suture. The skin was closed using 4-0 Monocryl suture. Steri-Strips and bandages were applied. Abdominal binder was applied and the drain was placed to bulb suction. Patient will be admitted for observation due to the extensive nature of the hernia repair and pain control. Grafts/Implants Used: [address] light [address] mesh Admit VTE Documentation VTE Mechan Device Prophylaxis: SCD's
--- NOTE | 2021-11-12 14:43 | SUR.PHASEI ---
FAMILY UPDATED VIA CONCRETE PUMP OPERATOR HELPER; AWAITING CLEAN ROOM AT THIS TIME
[2021-11-12] MEDS: 0.9% Normal Saline 1,000 ML 60 ML IV (15:20)
[2021-11-12] MEDS: 0.9% Saline Lock 10 ML Syringe IV (16:47)
[2021-11-12] MEDS: Morphine 4 MG/ML Syringe IV (16:48)
[2021-11-12] MEDS: Atorvastatin Calcium 10 MG Tablet PO (20:43)
[2021-11-12] MEDS: Docusate Sodium 100 MG/10 ML UDC 50 MG PO (20:43)
[2021-11-12] MEDS: Carvedilol 25 MG Tablet PO (20:43)
[2021-11-12] MEDS: Polyethylene Glycol 3350 17 GM PACKET PO (20:43)
[2021-11-13 02:40] VITALS: BP 112/67; PULSE 71; RESP 18; TEMP 36.7; O2SAT 92
[2021-11-13] MEDS: oxyCODONE 5 MG Tablet PO ×3 (02:42→11:49)
[2021-11-13] MEDS: Acetaminophen 325 MG Tablet 650 MG PO ×2 (02:43→11:43)
[2021-11-13] MEDS: Levothyroxine 125 MCG Tablet PO (06:34)
[2021-11-13] MEDS: 0.9% Normal Saline 1,000 ML 60 ML IV (06:34)
--- NOTE | 2021-11-13 08:14 | PCM.PN.SRG ---
Subjective Subjective Patient is doing well. Objective Data Objective Data Vital Signs: Vital Signs Temp Pulse Resp BP Pulse Ox 98.0 F 71 18 112/67 92 11/13/21 02:40 11/13/21 02:40 11/13/21 02:40 11/13/21 02:40 11/13/21 02:40 Oxygen Delivery Method Room Air Weight: 150 lb 12.739 oz Body Mass Index (BMI) 28.5 Intake & Output: Intake and Output for Last 24 Hours 11/11/21 11/12/21 11/13/21 23:59 23:59 23:59 Intake Total 1141.75 / 1501.75 1394 / 1394 Output Total 70 / 580 520 / 520 Balance 1071.75 / 921.75 874 / 874 Lab / Micro Data Result Diagrams: 11/05/21 15:53 11/05/21 15:53 Physical Exam Const oriented x3 and no apparent distress Resp normal respiratory effort Cardio regular rate GI soft to palpation and non-tender Assessment & Plan Assessment/Plan (1) Ventral hernia: QUALIFIERS: Obstruction and gangrene presence: without obstruction or gangrene Qualified Code(s): K43.9 - Ventral hernia without obstruction or gangrene PLAN: The patient is doing well after ventral hernia repair. Her pain is very well controlled. Her drain is serous. Plan for discharge today. Kyree Leggett MD Pager: [facility] [address] [place] [address], [address] [place] [address] Office:
--- NOTE | 2021-11-13 08:16 | PCM.DC.SUM ---
Providers Date of Admission: 11/12/21 Primary Care Physician: Dr. Jenny Lezama DO Reason For Visit: HYBRID HERNIA VENTRAL REPAIR MESH Diagnosis Discharge Diagnosis (1) Ventral hernia: Status: Acute Code(s): K43.9 - Ventral hernia without obstruction or gangrene Qualifiers: Obstruction and gangrene presence: without obstruction or gangrene Qualified Code(s): K43.9 - Ventral hernia without obstruction or gangrene Medications at Discharge Home Medications aspirin 81 mg tablet,delayed release 81 mg PO DAILY 05/02/21 atorvastatin 10 mg tablet 10 mg PO QHS 05/02/21 carvedilol 25 mg tablet 25 mg PO BID 05/02/21 cholecalciferol (vitamin D3) 50 mcg (2,000 unit) capsule 50 mcg PO DAILY 05/02/21 levothyroxine 125 mcg tablet 125 mcg PO MOTUWETHFR 05/02/21 losartan 100 mg tablet 100 mg PO DAILY 05/02/21 multivitamin 1 tab PO DAILY 05/02/21 polyethylene glycol 3350 17 gram/dose oral powder 17 g PO QHS 05/02/21 potassium chloride 10 mEq tablet,extended release 10 meq PO DAILY 05/02/21 psyllium husk 0.4 gram capsule 0.4 g PO DAILY 05/02/21 Saccharomyces boulardii 250 mg capsule 250 mg PO DAILY cap 06/11/21 alendronate 70 mg tablet 35 mg PO NUNEZ tab 06/11/21 ascorbic acid (vitamin C) 500 mg capsule 500 mg PO DAILY cap 06/11/21 calcium carbonate 500 mg calcium (1,250 mg) tablet 500 mg PO DAILY 06/11/21 cephalexin 250 mg capsule 250 mg PO DAILY cap 06/11/21 cranberry 500 mg capsule 600 mg PO DAILY cap 06/11/21 docusate sodium 50 mg capsule 50 mg PO BID cap 06/11/21 estradiol 1 g VAGINAL .3XW g 06/11/21 magnesium oxide 500 mg capsule 250 mg PO QHS cap 06/11/21 zinc 50 mg PO DAILY 08/09/21 hydrochlorothiazide 25 mg tablet 12.5 mg PO DAILY tab 10/08/21 acetaminophen [Tylenol] 650 mg PO Q4H PRN PRN #0 tab 11/13/21 oxycodone 5 - 10 mg PO Q4H PRN PRN 5 Days #30 tab 11/13/21 Hospital Course Summary of Care Provided Hospital Course: Patient had elective ventral hernia repair and was observed overnight for pain control and to monitor for any ongoing blood loss. Patient is doing well the next morning and she is discharged home. Weight / BMI Weight Weight: 150 lb 12.739 oz Body Mass Index (BMI) 28.5 ABG / Lab / Microbiology Data Result Diagrams: 11/05/21 15:53 11/05/21 15:53 D/C Instructions Discharge Diet: Light diet - advance as tolerated Discharge Activity: May Not Drive (for 2-3 days or while taking narcotic pain meds.) and May Shower (with the bandage in place 1-2 days after surgery.) Lifting Restrictions: 20 pounds for 6 weeks. Additional Activity Instructions: Climbing stairs is fine, walking is encouraged. Sitting in bed may be uncomfortable. Sitting up using your lateral muscles (sitting up sideways) is usually more comfortable. Do not drive, work heavy equipment of sign legal documents for 24 hours. Pain medications may cause nausea, you should typically eat light foods as you take your pain medications. Pain medications may also cause constipation. If you have difficulty with this, discuss with your doctor. Call your doctor if your incision/area has: Continuous Slow Oozing, Sudden Increased Bleeding, Increased Pain/ Swelling, Increased Redness and Foul Smelling Discharge Call your doctor if you observe: Fever of 101 or Higher Suture Line Care: Avoid Pulling/Pushing and Avoid Pinching/Bending Remove Dressing in: 2 days (Remove clear bandages in 2 days, remove Steri-Strips in 7 to 10 days.) Cleanse incision/area with: Soap & Water Drain: Suction Additional Dressing/Incision Instructions: Measure and log drain output daily. Please Follow Up With: Kyree Leggett MD When: Please call to schedule 1 week follow up appointment. [phone] Meaningful Use Info Meaningful Use Diagnoses (Choose all that apply): None applicable Discharge Plan Admission Admit Date/Time: 11/12/21 13:10 Attending Provider: Kyree Leggett Primary Care Provider: Jenny Lezama Discharge Orders/Prescriptions Prescriptions: New oxycodone 5 mg Tablet 5 - 10 mg PO Q4H PRN PRN (Reason: Pain Score 4-10) 5 Days Qty: 30 RF: 0 acetaminophen [Tylenol] 325 mg Tablet 650 mg PO Q4H PRN PRN (Reason: PAIN/FEVER) Qty: 0 RF: 0 Continued losartan 100 mg tablet 100 mg PO DAILY RF: 0 carvedilol 25 mg tablet 25 mg PO BID RF: 0 levothyroxine 125 mcg tablet 125 mcg PO MOTUWETHFR RF: 0 potassium chloride [Klor-Con 10] 10 mEq tablet extended release 10 meq PO DAILY RF: 0 atorvastatin [Lipitor] 10 mg tablet 10 mg PO QHS RF: 0 polyethylene glycol 3350 [Miralax] 17 gram/dose powder 17 g PO QHS RF: 0 multivitamin Tablet 1 tab PO DAILY RF: 0 cholecalciferol (vitamin D3) 50 mcg (2,000 unit) capsule 50 mcg PO DAILY RF: 0 aspirin 81 mg tablet,delayed release (DR/EC) 81 mg PO DAILY RF: 0 psyllium husk [Daily Fiber] 0.4 gram capsule 0.4 g PO DAILY RF: 0 alendronate [Fosamax] 70 mg tablet 35 mg PO NUNEZ RF: 0 ascorbic acid (vitamin C) 500 mg capsule 500 mg PO DAILY RF: 0 cephalexin 250 mg capsule 250 mg PO DAILY RF: 0 cranberry 500 mg capsule 600 mg PO DAILY RF: 0 Stool Softener 50 mg capsule 50 mg PO BID RF: 0 estradiol [Estrace] 0.01 % (0.1 mg/gram) cream 1 g vaginal .3XW RF: 0 magnesium oxide 500 mg capsule 250 mg PO QHS RF: 0 Saccharomyces boulardii [Daily Probiotic (S. boulardii)] 250 mg capsule 250 mg PO DAILY RF: 0 hydrochlorothiazide 25 mg tablet 12.5 mg PO DAILY RF: 0 calcium carbonate [Calcium 500] 500 mg calcium (1,250 mg) tablet 500 mg PO DAILY RF: 0 zinc 50 mg Tablet 50 mg PO DAILY RF: 0 Referrals / Follow Up: Jenny Lezama DO [Primary Care Provider] - Disposition Disposition (needs filled in before D/C Order can be placed): Home, Self Care
[2021-11-13] MEDS: Carvedilol 25 MG Tablet PO (08:39)
[2021-11-13] MEDS: Losartan Potassium 100 MG Tablet PO (08:39)
[2021-11-13] MEDS: Aspirin E.C. 81 MG Tablet PO (08:39)
[2021-11-13] MEDS: hydroCHLOROthiazide 12.5mg 12.5 MG PO (08:39)
[2021-11-13] MEDS: Calcium (Elemental) 500 MG Tablet PO (08:39)
[2021-11-13] MEDS: Potassium Chloride Oral Tablet 10 MEQ PO (08:39)
[2021-11-13] MEDS: Docusate Sodium 100 MG/10 ML UDC 50 MG PO (08:39)
[2021-11-13 09:00] VITALS: BP 120/65; PULSE 73; RESP 16; TEMP 36.6; O2SAT 95
--- NOTE | 2021-11-13 11:44 | PHA.DC.MC ---
Pharmacy Service has performed discharge medication reconciliation and counseling for this patient. 1. OXYCODONE 5-10MG PO Q4H PRN PAIN The patient's discharge medication list was reviewed for discrepancies and discrepancies were resolved. Home Medications aspirin 81 mg tablet,delayed release 81 mg PO DAILY 05/02/21 atorvastatin 10 mg tablet 10 mg PO QHS 05/02/21 carvedilol 25 mg tablet 25 mg PO BID 05/02/21 cholecalciferol (vitamin D3) 50 mcg (2,000 unit) capsule 50 mcg PO DAILY 05/02/21 levothyroxine 125 mcg tablet 125 mcg PO MOTUWETHFR 05/02/21 losartan 100 mg tablet 100 mg PO DAILY 05/02/21 multivitamin 1 tab PO DAILY 05/02/21 polyethylene glycol 3350 17 gram/dose oral powder 17 g PO QHS 05/02/21 potassium chloride 10 mEq tablet,extended release 10 meq PO DAILY 05/02/21 psyllium husk 0.4 gram capsule 0.4 g PO DAILY 05/02/21 Saccharomyces boulardii 250 mg capsule 250 mg PO DAILY cap 06/11/21 alendronate 70 mg tablet 35 mg PO NUNEZ tab 06/11/21 ascorbic acid (vitamin C) 500 mg capsule 500 mg PO DAILY cap 06/11/21 calcium carbonate 500 mg calcium (1,250 mg) tablet 500 mg PO DAILY 06/11/21 cephalexin 250 mg capsule 250 mg PO DAILY cap 06/11/21 cranberry 500 mg capsule 600 mg PO DAILY cap 06/11/21 docusate sodium 50 mg capsule 50 mg PO BID cap 06/11/21 estradiol 1 g VAGINAL .3XW g 06/11/21 magnesium oxide 500 mg capsule 250 mg PO QHS cap 06/11/21 zinc 50 mg PO DAILY 08/09/21 hydrochlorothiazide 25 mg tablet 12.5 mg PO DAILY tab 10/08/21 acetaminophen [Tylenol] 650 mg PO Q4H PRN PRN #0 tab 11/13/21 oxycodone 5 - 10 mg PO Q4H PRN PRN 5 Days #30 tab 11/13/21 The patient was counseled on the following discharge medications and changes in medications for homegoing were reviewed. The Reason for Use, instructions for use, and potential side effects were reviewed for all new medications. The patient's questions regarding all of their medications were answered. The patient was able to verbally demonstrate an understanding of their discharge medications.
== END 2021-11-13 12:17 | disposition home or self-care (01) ==
LOC: SDC 14:22 → MS3 14:22
PROVIDERS: Anesthesiology; Admitting Provider Surgery; PCP Internal Medicine; Referring Provider Surgery; Visit Provider Surgery
PROC: 0WQF4ZZ Repair Abdominal Wall, Percutaneous Endoscopic Approach (ICD-10-PCS; CPT 49560; principal; 2021-11-12 11:45)
DX: K43.6 Other and unspecified ventral hernia with obstruction, without gangrene (principal); E78.5 Hyperlipidemia, unspecified; I10 Essential (primary) hypertension; E03.9 Hypothyroidism, unspecified; Z79.899 Other long term (current) drug therapy; Z79.82 Long term (current) use of aspirin; Z79.890 Hormone replacement therapy; R32 Unspecified urinary incontinence; Z86.2 Personal history of diseases of the blood and blood-forming organs and certain disorders involving the immune mechanism; M48.00 Spinal stenosis, site unspecified; N31.9 Neuromuscular dysfunction of bladder, unspecified; K59.2 Neurogenic bowel, not elsewhere classified
CPT/HCPCS: 49560; 49568; 00832; 36415; 80048; 84443; 85027; 88302; 96374; 99218; 99251; J7030; J7120; A4216; G0378; G0463; J2405; J3490